=== PATIENT | female | born 1990 | race Caucasian/White ===

== ENCOUNTER 2017-11-05 16:17 | Inpatient (IN) ==
--- OUTSIDE RECORDS SUMMARY | 2017-11-05 16:24 | External Medical Summary | Continuity of Care Document ---
:1990 Author Organization [facility] Address [address] [place], [place] [address] Phone Support Name Relationship Address Phone Naman GALINDO parent [phone] [place] [address] Allergies, Adverse Reactions, Alerts Substance Reaction Severity Status No Known Drug Allergies Unknown Active Medications Medication Instructions Dosage Effective Dates Status Comments (start - stop) 28 mg take 1 tablet by Not Available - Active iron-800 mcg oral route every tablet day Problems Condition Effective Dates (start - stop) Clinical Status Encntr screen for infections w sexl - mode of transmiss Encounter for screening for oth - infec/parastc diseases Encntr for suprvsn of normal first - preg, second trimester Encounter For Other Specified - Screening 14 weeks gestation of - Low weight gain in , third - trimester Abnormal ultrasonic finding on - screening of mother Encntr for suprvsn of normal first - preg, third trimester 34 weeks gestation of - Abnormal ultrasonic finding on - screening of mother Encntr for suprvsn of normal first - preg, third trimester 32 weeks gestation of - Abnormal ultrasonic finding on - screening of mother 28 weeks gestation of - Encntr for suprvsn of normal first - preg, second trimester 20 weeks gestation of - Encntr for suprvsn of normal first - preg, second trimester 24 weeks gestation of - Encntr for suprvsn of normal first - preg, second trimester 18 weeks gestation of - Encntr for suprvsn of normal first - preg, second trimester 20 weeks gestation of - Encntr for suprvsn of normal first - preg, third trimester 30 weeks gestation of - Procedures Procedure Date Unknown Results Test Name Date and Time Measure Units Reference Range Abnormal Flag Comments Unknown Advance Directives Directive Yes / No Effective Date File Name Unknown Encounters Encounter Practice Location Reason(s) Diagnoses Date Provider Care Team Description For Visit Members Associates [facility] Low weight gain Jc-1 Sobbing Referring In Womens in , 8 [place]. Provider: Raffi FAIRCHILD, third 8 700 [address] Fisher [address] trimesterAbnormal Medical K, 700 1522, ultrasonic [facility], finding on [facility] [address], [address], [id number], screening of 120, [place], [place] motherEncntr for [place], [place], tel:+316 suprvsn of normal [place], [id number]. first preg, third [address], tel:+316 [id number] weeks [place]. [id number] gestation of tel:[phone] Associates Jay Cj-1 Sobbing In Womens - [place]. Raffi FAIRCHILD, 8 700 [address], [facility] [place], [place], [place], [id number], 120, [place], tel:+316 [place], [address], [place]. tel: [phone] Associates Jay Abnormal Cj-0 Sobbing Referring In Womens ultrasonic - [place]. Provider: Raffi FAIRCHILD, finding on 8 700 [address] Fisher PO Box Medical K, 700 1522, screening of [facility], motherEncntr for [facility] [address], suprvsn of normal [address], [id number], first preg, third 120, [place], [place] [email or web address] weeks MARITZA [place], tel:+3162 gestation of [place], [id number]. [address], tel:+[phone] [place]. [id number] tel: [phone] Associates Jay Encntr for August- Sobbing Referring In Womens suprvsn of normal -201 [place]. Provider: Raffi FAIRCHILD, first preg, third 8 700 Kiah Fisher [address] [email or web address] weeks Medical K, 700 1522, gestation of [facility], [facility] [address], [address], [id number], 120, [place], [place] MARITZA [place], tel:+3162 MAR[place]ZA, [id number]. [address], tel:+1316 [place]. [phone] tel: [phone] Kelley [place] Abnormal May-2 Sobbing Referring In Womens Ultrasound ultrasonic 1- [place]. Provider: Raffi FAIRCHILD, finding on 8 700 Kiah Fisher PO Box Medical K, 700 1522, screening of [facility], [email or web address] weeks [facility] Dr [address], gestation of [address], [id number], 120, [place], [place] MARITZA [place], tel:+3162 MARITZA, [id number]. 114, tel:+316 [place]. [phone] tel: [phone] Kelley Ingram for Apr-2 Sobbing Referring In Womens suprvsn of normal 3-201 [place]. Provider: Raffi FAIRCHILD, first preg, 8 700 Kiah Fisher PO Box second Medical K, 700 1522, [email or web address] weeks [facility], gestation of [facility] [address], [address], [id number], 120, [place], [place] MARITZA [place], tel:+ MARITZA, [phone]. [address], tel:+316 [place]. 6792753 tel: [phone] Kelley Ingram for Mar-2 Sobbing Referring In Womens suprvsn of normal 6-201 [place]. Provider: Raffi FAIRCHILD, first preg, 8 700 Kiah Fisher PO Box second Medical K, 700 1522, [email or web address] weeks [facility], gestation of [facility] [address], [address], , 120, [place], [place] MARITZA [place], tel:+3162 MARITZA, [id number]. 114, tel:+[phone] US. [id number] tel: [phone] Kelley [place] Encntr for Mar-2 Sobbing Referring In Womens Ultrasound suprvsn of normal 6-201 [place]. Provider: Health DEVORAH, first preg, 8 700 Kiah Fisher PO Box second Medical K, 700 1522, [email or web address] weeks [facility] [place], gestation of [facility] [address], [address], [id number], 120, [place], [place], tel:+ [place], [id number]. 114, tel:+ US. 3697323 tel: [phone] Kelley [place] Encntr for Jun- Sobbing Referring In Womens suprvsn of normal 2-201 [place]. Provider: Health DEVORAH, first preg, 8 700 Kiah Fisher PO Box second Medical K, 700 1522, weeks [place] Pat[facility]io Russo, gestation of [facility] [address], [address], [id number], 120, [place], MARITZA [place], tel:+ [place], [phone]. 114, tel:+ US. 6632554 tel: [phone] Kelley [place] Encntr screen for Feb- Sobbing Referring In Womens infections w sexl 2-201 [place]. Provider: Raffi FAIRCHILD, mode of 8 700 [address]iah Fisher PO Box transmissEncounte Medical K, 700 1522, [facility], for oth [facility] [address], infec/parastc [address], [id number], diseasesEncntr 120, [place], for suprvsn of [place], [place], tel:+ normal first MARITZA, [id number]. preg, second [address], tel:+316 trimesterEncounte [place]. [id number] r For Other tel: Specified [phone] [id number] weeks gestation of Associates Jay Nov-2 Fisher In Womens 4-200 Kiah. Raffi FAIRCHILD, 9 700 [address], [address], [address] MAR[place]ZA, 120, [id number], [place], MARITZA, tel:[phone] , [place]. tel: [phone] Family History Family Member Diagnosis Age At Onset Maternal Grandfather Diabetes mellitus No family history of Stroke Maternal Grandmother Thyroid Disorder Maternal Grandfather Cardiovascular Disease Paternal Grandmother Thyroid Disorder Maternal Grandmother Hypertension Maternal Grandfather Renal disease No family history of Breast Cancer No family history of Colon Cancer Mother Gynecological Problem Maternal Grandmother Cardiovascular Disease No family history of Ovarian Cancer Mother Thyroid Disorder Maternal Grandmother Osteoporosis Immunizations Vaccine Date Status Comments Tdap completed Source: New Immunization Record Payers Payer name Insurance type Covered republican ID Authorization(s) [facility] [id number] [facility] [id number] [facility] [id number] Social History Type Description Quantity Date Captured Unknown Vital Signs Date / Height Weight BMI Pulse Blood Temperature Respiratory Body Head BMI Time: Rate Pressure Rate Surface Circumference percentile Area Unknown Chief Complaint And Reason For Visit Unknown Chief Complaint And Reason For Visit Reason For Referral Reason For Referral Unknown Plan Of Care Date Type Action Status Appointment Alpa Christopher BOOKED Appointment Alpa Christopher BOOKED Future Order: Radiology Order Ultrasound OB Follow-up ([id number]) Ordered Future Order: Radiology Order Complete OB Ultrasound > 14 Weeks Ordered ([id number]) Date Type Problem Goal Intervention Status Start Date Unknown. History Of Present Illness Encounter Date Complaint History Of Present Illness This patient has no known history of present illness Functional Status Encounter Date Functional Assessment Cognitive Assessment Unknown Medications Administered Medication Instructions Dosage Effective Dates (start - stop) Status Comments Drug Treatment Unknown Instructions Date Instruction Additional Information exercise indications for ultrasound influenza vaccine environmental / work hazards travel use of any medications (including supplements, vitamins, herbs, OTC drugs) domestic violence seat belt use childbirth classes / hospital facilities hospital registration genetic testing new ob handbook HIV and other routine tests risk factors identified by history anticipated course of care nutrition and weight gain counseling, special diet toxoplasmosis precautions (cats / raw meat) sexual activity
--- OUTSIDE RECORDS SUMMARY | 2017-11-05 16:24 | External Medical Summary | Continuity of Care Document ---
:1990 Author Organization [facility] Address [address] [place], [place] [id number] Phone Support Name Relationship Address Phone Naman GLAINDO parent [phone] [place] [address] Allergies, Adverse Reactions, Alerts Substance Reaction Severity Status No Known Drug Allergies Unknown Active Medications Medication Instructions Dosage Effective Dates Status Comments (start - stop) 28 mg take 1 tablet by Not Available - Active iron-800 mcg oral route every tablet day Problems Condition Effective Dates (start - stop) Clinical Status Encntr for suprvsn of normal first - preg, third trimester Encounter For Screening For - Streptococcus B 36 weeks gestation of - Encntr screen for infections w sexl - mode of transmiss Encounter for screening for oth - infec/parastc diseases Encntr for suprvsn of normal first - preg, second trimester Encounter For Other Specified - Screening 14 weeks gestation of - Low weight gain in , third - trimester Abnormal ultrasonic finding on - screening of mother 36 weeks gestation of - Low weight gain in , third - trimester Abnormal ultrasonic finding on - screening of mother Encntr for suprvsn of normal first - preg, third trimester 34 weeks gestation of - Low weight gain in , third - trimester Encntr for suprvsn of normal first - preg, third trimester 38 weeks gestation of - Abnormal ultrasonic finding on - screening of mother Encntr for suprvsn of normal first - preg, third trimester 32 weeks gestation of - Abnormal ultrasonic finding on - screening of mother Encntr for suprvsn of normal first - preg, third trimester 37 weeks gestation of - Abnormal ultrasonic finding [...] weeks gestation of - Procedures Procedure Date OB Visit No Charge Cult, pathgnc orgnsm, screen Results Test Name Date and Time Measure Units Reference Range Abnormal Flag Comments Panel Description: Strep Gp B Culture Strep Gp B Negative Negative Centers for Disease Control Culture 11:38:00 and Prevention (CDC) and [place] Congressof Obstetricians and Gynecologists (ACOG) guidelines for prevention ofperinatal group B streptococcal (GBS) disease specify co-collection ofa vaginal and rectal swab specimen to maximize sensitivity of GBSdetection. Per the CDC and ACOG, swabbing both the lower vagina andrectum substantially increases the yield of detection compared withsampling the vagina alone. .Penicillin G, ampicillin, or cefazolin are indicated for intrapartumprophylaxis of GBS colonization. Reflex susceptibilitytesting should be performed prior to use of clindamycin only on GBSisolates from penicillin-allergic women who are considered a high riskfor anaphylaxis. Treatment with vancomycin without additional testingis warranted if resistance to clindamycin is noted. Advance Directives Directive Yes / No Effective Date File Name Unknown Encounters Encounter Practice Location Reason(s) Diagnoses Date Provider Care Team Description For Visit Members Associates Jay Low weight gain Lloyd-1 Sobbing Referring In Womens in , 6 [place]. Provider: Raffi FAIRCHILD, third 8 700 [address] Fisher PO Box trimesterEncntr Medical , 700 152, for [facility], normal [address], [address], preg, third [address], [id number], [email or web address] weeks 120, [place], [place] gestation of MARITZA [place], tel:+ MARIT[place], [phone]. [address], tel:+316 [place]. [phone] tel: [phone] Associates Jay Abnormal Lloyd-0 Sobbing Referring In Womens ultrasonic 9 [place]. Provider: Raffi FAIRCHILD, finding on 8 700 [address] Fisher PO Box Medical , 700 152, screening of [facility], motherEncntr for [facility], [address], suprvsn of normal [address], [id number], first preg, third 120, [place], [place] [id number] weeks MARITZA [place], tel:+ gestation of MARITZA, [id number]. [address], tel:+ US. [phone] tel: [phone] Associates Jay Encntr for Lloyd-0 Sobbing Referring In Womens suprvsn of normal [place]. Provider: Raffi FAIRCHILD, first preg, third 8 700 Kiah Fisher PO Box [facility], 700 152, [facility], Screening For [facility], [address], Streptococcus B36 [address], [id number], weeks gestation 120, [place], [place] of MARITZA [place], tel:+ MARITZA, [id number]. [address], tel:+316 [place]. 6924503 tel: [phone] Associates Jay Low weight gain Lloyd-0 Sobbing Referring In Womens Ultrasound in , [place]. Provider: Raffi FAIRCHILD, third 8 700 [address] Fisher PO Box trimesterAbnormal Medical , 700 1522, ultrasonic [facility], finding on [facility], [address], [address], [id number], screening of 120, [place], [place] [id number] weeks [place], [place], tel:+ gestation of MARITZA, [id number]. [address], tel:+1316 US. 3965858 tel: [phone] Associates Jay Low weight gain Cj-1 Sobbing Referring In Womens in , 8201 [place]. Provider: Raffi FAIRCHILD, third 8 700 [address] Fisher [address] Box trimesterAbnormal Medical , 700 1522, ultrasonic [facility], finding on Drive, [address], [address], [id number], screening of 120, [place], [place] motherEncntr for MARITZA [place], tel:+ suprvsn of normal MARITZA, [id number]. first preg, third [address], tel:+316 [id number] weeks [place]. [id number] gestation of tel:+[phone] Associates Jay Abnormal Cj-0 Sobbing Referring In Womens ultrasonic 4201 [place]. Provider: Raffi FAIRCHILD, finding on 8 700 [address] Medical , 700 1522, screening of [facility], motherEncntr for [facility], [address], suprvsn of normal [address], [id number], first preg, third 120, [place], [place] [id number] weeks MARITZA [place], tel:+ gestation of MARITZA, [id number]. [address], tel:+-316 US. 9965634 tel: [phone] Associates Jay Encntr for May-2 Sobbing Referring In Womens suprvsn of normal 201 [place]. Provider: Raffi FAIRCHILD, first preg, third 8 700 [address] Fisher [address] Box [id number] weeks Medical , 700 1522, gestation of [facility], Drive, [address], [address], [id number], 120, [place], [place] JayMARITZA, tel:+316 MARIT[place], [id number]. [address], tel:+1-316 US. 8825461 tel: [phone] Associates Jay Abnormal May-2 Sobbing Referring In Womens Ultrasound ultrasonic 201 [place]. Provider: Raffi FAIRCHILD, finding on 8 700 [address] Fisher PO Box Medical , 700 1522, screening of [facility], [id number] weeks [facility] Dr [address], gestation of [address], [id number], 120, [place], [place] MARITZA [place], tel:+ MARITZA, [id number]. 114, tel:+ US. 9843143 tel: [phone] Kelley [place] Encntr for Apr-2 Sobbing Referring In Womens suprvsn of normal 3-201 [place]. Provider: Raffi FAIRCHILD, first preg, 8 700 [address] Fisher PO Box second Medical K, 700 1522, [email or web address] weeks [facility], gestation of [facility] [address], [address], [id number], 120, [place], [place] MARITZA [place], tel:+ MARITZA, [id number]. 114, tel:+ US. 0885520 tel: [phone] Kelley [place] Encntr for Mar-2 Sobbing Referring In Womens suprvsn of normal 6-201 [place]. Provider: Raffi FAIRCHILD, first preg, 8 700 [address] Fisher PO Box second Medical K, 700 1522, [id number] weeks [facility], gestation of [facility] [address], [address], [id number], 120, [place], [place] MARITZA [place], tel:+ MARITZA, [id number]. 114, tel:+ US. 9153042 tel: [phone] Kelley [place] Encntr for Mar-2 Sobbing Referring In Womens Ultrasound suprvsn of normal 6-201 [place]. Provider: Raffi FAIRCHILD, first preg, 8 700 [address] Fisher PO Box second Medical K, 700 1522, [id number] weeks [facility], gestation of [facility] [address], [address], [id number], 120, [place], [place] MARITZA [place], tel:+ MARITZA, [id number]. 114, tel:+ US. 6070600 tel: [phone] Kelley [place] Encntr for Mar-1 Sobbing Referring In Womens suprvsn of normal 2-201 [place]. Provider: Raffi FAIRCHILD, first preg, 8 700 [address]iah Fisher PO Box second Medical K, 700 1522, [email or web address] weeks [facility], gestation of [facility] Dr [address], [address], [id number], 120, [place], [place], tel: MARITZA, [id number]. [address], tel: US. 6196261 tel: [phone] Associates Jay Encntr screen for May- Sobbing Referring In Womens infections w sexl 2-201 [place]. Provider: Health DEVORAH, mode of 8 700 [address] Fisher PO Box [facility] K, 700 1522, r for screening [facility], for oth [facility] Dr SAL[address], infec/parastc [address], [id number], diseasesEncntr 120, [place], for suprvsn of Jay [place], tel: normal first MARITZA, [id number]. preg, second [address], tel: trimesterEncounte US. [id number] r For Other tel: Specified [phone] [id number] weeks gestation of Associates Jay Feb- Fisher In Womens 4-200 Kiah. Health DEVORAH, 9 700 [address], [address], [place], 120, [id number], [place], MARITZA, tel: [phone] , [place]. tel: [phone] Family History Family Member Diagnosis Age At [...] Record Payers Payer name Insurance type Covered libertarian ID Authorization(s) [facility] [id number] [facility] [id number] [facility] [id number] Social History Type Description Quantity Date Captured Alcohol Use Details No Caffeine Use Details Unknown Tobacco Use Status Unknown Smoking Status Never smoker Vital Signs Date / Height Weight BMI Pulse Blood Temperature Respiratory Body Head BMI Time: Rate Pressure Rate Surface Circumference percentile Area 26.4 -2018 2 10:53 kg/m AM eter (2) 158.60 26.3 128/78 -2018 lbs 9 mm[Hg] 11:11 kg/m AM eter (2) Chief Complaint And Reason For Visit Unknown Chief Complaint And Reason For Visit Reason For Referral Reason For Referral Unknown Plan Of Care Date Type Action Status Appointment Alpa Christopehr BOOKED Appointment 7pm Alpa Andre @ [facility] BOOKED Future Order: Radiology Order Ultrasound OB Follow-up ([id number]) Ordered Future Order: Radiology Order Ultrasound OB Follow-up ([id number]) Ordered Future Order: Radiology Order Complete OB Ultrasound > 14 Weeks Ordered ([id number]) Date Type Problem Goal Intervention Status Start [...]
--- OUTSIDE RECORDS SUMMARY | 2017-11-05 16:24 | External Medical Summary | Continuity of Care Document ---
:1990 Author Organization [facility] [employer] [facility] Address [address] [place], [place] [address] Phone Support Name Relationship Address Phone Naman GALINDO parent [phone] [place] [address] Allergies, Adverse Reactions, Alerts Substance Reaction Severity [...] third trimester 30 weeks gestation of - Encntr screen for infections w sexl - mode of transmiss Encounter for screening for oth - infec/parastc diseases Encntr for suprvsn of normal first - preg, second trimester Encounter For Other Specified - Screening 14 weeks gestation of - Abnormal ultrasonic finding [...] second trimester 20 weeks gestation of - Procedures Procedure Date Immuniz admnin, 1 vac, sngl/combo 19 Yrs + TDAP VACCINE >7 IM OB Visit No Charge Automated hemogram (CBC) Glucose test Venpnctr fngr/heel/ear stick routne Results Test Name Date and Time Measure Units Reference Range Abnormal Flag Comments Panel Description: CBC With Differential/Platelet WBC 09:39:00 9.3 x10E3/uL 3.4-10.8 RBC 09:39:00 4.20 x10E6/uL 3.77-5.28 Hemoglobin 09:39:00 12.0 g/dL 11.1-15.9 Hematocrit 09:39:00 38.7 % 34.0-46.6 MCV 09:39:00 92 fL 79-97 MCH 09:39:00 28.6 pg 26.6-33.0 MCHC 09:39:00 31.0 g/dL 31.5-35.7 L RDW 09:39:00 13.3 % 12.3-15.4 Platelets 09:39:00 390 x10E3/uL 150-379 H Neutrophils 09:39:00 79 % Not Estab. Lymphs 09:39:00 14 % Not Estab. Monocytes 09:39:00 6 % Not Estab. Eos 09:39:00 0 % Not Estab. Basos 09:39:00 0 % Not Estab. Immature Cells 09:39:00 Neutrophils (Absolute) 09:39:00 7.4 x10E3/uL 1.4-7.0 H Lymphs (Absolute) 09:39:00 1.3 x10E3/uL 0.7-3.1 Monocytes(Absolute) 09:39:00 0.6 x10E3/uL 0.1-0.9 Eos (Absolute) 09:39:00 0.0 x10E3/uL 0.0-0.4 Baso (Absolute) 09:39:00 0.0 x10E3/uL 0.0-0.2 Immature Granulocytes 09:39:00 1 % Not Estab. Immature Grans (Abs) 09:39:00 0.1 x10E3/uL 0.0-0.1 NRBC 09:39:00 Hematology Comments: 09:39:00 Panel Description: Glucose [Mass/volume] in Serum or Plasma --1 hour post 50 g glucose PO Gestational Diabetes Screen 09:39:00 87 mg/dL 65-135 Advance Directives Directive Yes / No Effective Date File Name Unknown Encounters Encounter Practice Location Reason(s) Diagnoses Date Provider Care Team Description For Visit Members Kelley [place] Abnormal Cj-0 Sobbing Referring In Womens ultrasonic 4-201 [place]. Provider: Health DEVORAH, finding on 8 700 K[address] Fisher PO Box Medical , 700 1522, screening of [facility], motherEncntr for [facility] [address] SALAS, suprvsn of normal [address], [id number], first preg, third 120, [place], [place] [id number] weeks MARITZA [place], tel:+ gestation of MARITZA, [phone] [address], tel:+ US. [phone] tel: [phone] Kelley [place] Encntcapo for August-2 Sobbing Referring In Womens suprvsn of normal -201 [place]. Provider: Raffi FAIRCHILD, first preg, third 8 700 [address] Fisher [address] [email or web address] weeks Medical , 700 1522, gestation of [facility], [facility] Dr SALAS, [address], [id number], 120, [place], [place] MARITZA [place], tel:+316 [place], [phone] [address], tel:+316 [place]. [phone] tel: [phone] Kelley [place] Abnormal August-2 Sobbing Referring In Womens Ultrasound ultrasonic 1-201 [place]. Provider: Raffi FAIRCHILD, finding on 8 700 Kiah Fisher PO Box Medical K, 700 1522, screening of [facility], [email or web address] weeks [facility] Dr SALAS, gestation of [address], [id number], 120, [place], [place] MARITZA [place], tel:+3162 [place], [id number]. [address], tel:+316 US. 3070438 tel: [phone] Kelley [place] Encntr for Apr-2 Sobbing Referring In Womens suprvsn of normal 3-201 [place]. Provider: Health DEVORAH, first preg, 8 700 Kiah Fisher PO Box second Medical K, 700 1522, [email or web address] weeks [facility], [employer] of [facility] Dr SALAS, [address], [id number], 120, [place], [place] MARITZA [place], tel:+ MARITZA, [id number]. 114, tel:+ US. [phone] tel: [phone] Kelley [place] Encntr for Mar-2 Sobbing Referring In Womens suprvsn of normal 6-201 [place]. Provider: Raffi FAIRCHILD, first preg, 8 700 Kiah Fisher PO Box second Medical K, 700 1522, [email or web address] weeks [facility], gestation of [facility] Dr SALAS, [address], [id number], 120, [place], [place] MARITZA [place], tel:+ MARITZA, [phone]. [address], tel:+ US. [phone] tel: [phone] Kelley [place] Encntr for Mar-2 Sobbing Referring In Womens Ultrasound suprvsn of normal 6-201 [place]. Provider: Health DEVORAH, first preg, 8 700 Kiah Fisher PO Box second Medical K, 700 1522, [email or web address] weeks [facility], [facility] Dr SALAS, [address], [id number], 120, [place], [place] MARITZA [place], tel:+3162 [place], [id number]. 114, tel:+316 US. 2491876 tel: [phone] Kelley [place] Encntr for Mar-1 Sobbing Referring In Womens suprvsn of normal 2-201 [place]. Provider: Raffi FAIRCHILD, first preg, 8 700 [address] Fisher PO Box second Medical K, 700 1522, [email or web address] weeks [place] Patricio Russo, gestation of [facility] Dr SALAS, [address], [id number], 120, [place], [place], tel:+ [place], [phone]. [address], tel:+ US. 5265791 tel: [phone] Associates [facility] Encnt screen for May- Sobbing Referring In Womens infections w sexl 2-201 [place]. Provider: Raffi FAIRCHILD, mode of 8 700 Kaih Fisher PO Box transmissEncounte Medical K, 700 1522, r for screening [place] Patricio Russo, for oth [facility] Dr SALAS, infec/parastc [address], [id number], diseasesEncntr 120, [place], for suprvsn of [place], [place], tel:+ normal first MARITZA, [id number]. preg, second [address], tel:+ trimesterEncounte US. [phone] r For Other tel: Specified [phone] [id number] weeks gestation of Associates Jay Nov- Fisher In Womens 4-200 Kiah. Raffi FAIRCHILD, 9 700 [address], [place] [address] Karan, [place], 120, [id number], [place], MARITZA, tel:[phone] , . tel: [phone] Family History Family Member Diagnosis Age At [...] name Insurance type Covered libertarian ID Authorization(s) [facility] [id number] [facility] [id number] [facility] [id number] Social History Type Description Quantity Date Captured Alcohol Use Details No Caffeine Use Details Unknown Tobacco Use Status Unknown Smoking Status Never smoker Vital Signs Date / Height Weight BMI Pulse Blood Temperature Respiratory Body Head BMI Time: Rate Pressure Rate Surface Circumference percentile Area 159.60 26.5 113/66 -2018 lbs 6 mm[Hg] 9:03 kg/m AM eter (2) 159.60 26.5 -2018 lbs 6 9:02 kg/m AM eter (2) Chief Complaint And Reason For Visit Unknown Chief Complaint And Reason For Visit Reason For Referral Reason For Referral Unknown Plan Of Care Date Type Action Status Appointment Alpa Christopher BOOKED Future Order: Radiology Order Ultrasound OB Follow-up ([id number]) Ordered Future Order: Radiology Order Complete OB Ultrasound > 14 Weeks Ordered ([id number]) Date Type Problem Goal Intervention Status Start [...]
--- OUTSIDE RECORDS SUMMARY | 2017-11-05 16:24 | External Medical Summary | Continuity of Care Document ---
:1990 Author Organization [facility] [employer] [facility] Address [address] [place], [place] [address] Phone Support Name Relationship Address Phone Naman GALINDO parent [phone] [place] [address] Allergies, Adverse Reactions, Alerts Substance Reaction Severity Status No Known Drug Allergies Unknown Active Medications Medication Instructions Dosage Effective Dates Status Comments (start - stop) 28 mg take 1 tablet by Not Available - Active iron-800 mcg oral route every tablet day Problems Condition Effective Dates (start - stop) Clinical Status Low weight gain in , third - trimester Abnormal ultrasonic finding on - screening of mother Encntr for suprvsn of normal first - preg, third trimester 34 weeks gestation of - Encntr screen for [...] of mother 36 weeks gestation of - Abnormal ultrasonic finding [...] trimester 30 weeks gestation of - Encntr for suprvsn of normal first - preg, third trimester Encounter For Screening For - Streptococcus B 36 weeks gestation of - Procedures Procedure Date OB Visit No Charge Results Test Name Date and Time Measure Units Reference Range Abnormal Flag Comments Unknown Advance Directives Directive Yes / No Effective Date File Name Unknown Encounters Encounter Practice Location Reason(s) Diagnoses Date Provider Care Team Description For Visit Members Kelley [place] Encntr for Sobbing Referring In Womens suprvsn of normal [place]. Provider: Health DEVORAH, first preg, third 8 700 K[address] Fisher PO Box trimesterEncounte Medical K, 700 1522, [facility] For [facility], [address] SALAS, Streptococcus B36 [address], [id number], weeks gestation 120, [place], [place] of MARITZA [place], tel:+316 [place], [phone]. [address], tel:+ US. [phone] tel: [phone] Kelley [place] Low weight gain Oct- Sobbing Referring In Womens Ultrasound in , [place]. Provider: Health [place], third 8 700 Kiah Fisher PO Box trimesterAbnormal Medical K, 700 1522, ultrasonic [facility] Karan, finding on [facility], [address] SALAS, [address], [id number], screening of 120, [place], [place] [email or web address] weeks MARITZA [place], tel:+13162 gestation of MARITZA, [id number]. [address], tel:+316 US. 5598655 tel: [phone] Kelley [place] Low weight gain Cj-1 Sobbing Referring In Womens in , 8 [place]. Provider: Health DEVORAH, third 8 700 Kiah Fisher PO Box trimesterAbnormal Medical , 700 1522, ultrasonic [facility], finding on [facility] Dr SALAS, [address], [id number], screening of 120, [place], [place] motherEncntr for MARITZA [place], tel:+ suprvsn of normal MARITZA, [id number]. first preg, third [address], tel:+316 [id number] weeks US. [id number] gestation of tel:[phone] Associates Jay Abnormal Cj-0 Sobbing Referring In Womens ultrasonic [place]. Provider: Raffi FAIRCHILD, finding on 8 700 [address] PO [address] Medical , 700 152, screening of [facility], motherEncntr for [facility] Dr SALAS, suprvsn of normal [address], [id number], first preg, third 120, [place], [place] [id number] weeks MARITZA [place], tel:+ gestation of MARITZA, [phone]. [address], tel:+-316 US. 3550148 tel: [phone] Associates Jay Encntr for May-2 Sobbing Referring In Womens suprvsn of normal [place]. Provider: Raffi FAIRCHILD, first preg, third 8 700 K[address] Fisher PO Box [id number] weeks Medical , 700 1522, gestation of [facility], [facility], [address] SALAS, [address], [id number], 120, [place], [place] MARITZA [place], tel:+ MARITZA, [id number]. 114, tel:+316 US. 6381760 tel: [phone] Associates Jay Abnormal May-2 Sobbing Referring In Womens Ultrasound ultrasonic [place]. Provider: Raffi FAIRCHILD, finding on 8 700 [address] Fisher PO Box Medical , 700 1522, screening of [facility], [email or web address] weeks [facility] Dr SALAS, gestation of [address], [id number], 120, [place], [place] MARITZA [place], tel:+316 MARIT[place], [id number]. 114, tel:+1-316 US. 8968766 tel: [phone] Kelley [place] Encntr for Apr-2 Sobbing Referring In Womens suprvsn of normal 3-201 [place]. Provider: Raffi FAIRCHILD, first preg, 8 700 Kiah Barcenasb PO Box second Medical K, 700 1522, weeks [facility] Dr SALAS, [address], [id number], 120, [place], [place] MARITZA [place], tel: MARITZA, [id number]. 114, tel: US. 1941186 tel: [phone] Kelley [place] Encntr for Mar-2 Sobbing Referring In Womens suprvsn of normal 6-201 [place]. Provider: Raffi FAIRCHILD, first preg, 8 700 Kiah Barcenasb PO Box second Medical K, 700 1522, [email or web address] weeks [facility]3] Dr SALAS, [address], [id number], 120, [place], [place] MARITZA [place], tel: MARITZA, [id number]. 114, tel: US. 2232239 tel: [phone] Kelley [place] Encntr for Mar-2 Sobbing Referring In Womens Ultrasound suprvsn of normal 6-201 [place]. Provider: Raffi FAIRCHILD, first preg, 8 700 Kiah Barcenasb PO Box second Medical K, 700 1522, [email or web address] weeks [facility] Dr SALAS, [address], [id number], 120, [place], [place] MARITZA [place], tel: MARITZA, [id number]. 114, tel: US. 0873254 tel: [phone] Kelley [place] Encntr for Mar-1 Sobbing Referring In Womens suprvsn of normal 2-201 [place]. Provider: Raffi FAIRCHILD, first preg, 8 700 [address] Fisher PO Box second Medical K, 700 1522, [email or web address] weeks [facility] Dr SALAS, [address], [id number], 120, [place], [place] MARITZA [place], tel:+ MARITZA, [phone]. 114, tel: US. 5761547 tel: [phone] Associates Jay Encntr screen for b- Sobbing Referring In Womens infections w sexl 2-201 [place]. Provider: Raffi FAIRCHILD, mode of 8 700 K[address] Fisher PO Box transmissEncounte Medical K, 700 1522, r for screening Daniel Patricio Russo, for oth Drive, Daniel Dr SALAS, infec/parastc [address], [id number], diseasesEncntr 120, [facility] for suprvsn [place], tel: normal first [place], [id number]. preg, second [address], tel: trimesterEncounte US. [id number] r For Other tel: Specified [phone] [id number] weeks gestation of Associates Jay Feb- Fisher In Womens 4-200 Kiah. Raffi FAIRCHILD, 9 700 [address], [address] Karan, , [place], 120, [id number], [facility] [place], tel: [phone] [phone] , . tel: [phone] Family History Family Member Diagnosis Age At [...] Record Payers Payer name Insurance type Covered constitution party ID Authorization(s) [facility] [id number] [facility] [id number] [facility] [id number] Social History Type Description Quantity Date Captured Alcohol Use Details No Caffeine Use Details Unknown Tobacco Use Status Unknown Smoking Status Never smoker Vital Signs Date / Height Weight BMI Pulse Blood Temperature Respiratory Body Head BMI Time: Rate Pressure Rate Surface Circumference percentile Area 7 8:52 kg/m AM eter (2) Cj-18 158.80 26.4 129/77 -2018 lbs 2 mm[Hg] 8:59 kg/m AM eter (2) Chief Complaint And Reason For Visit Unknown Chief Complaint And Reason For Visit Reason For Referral Reason For Referral Unknown Plan Of Care Date Type Action Status Appointment 7pm NOMI Christopher Alpa @ [facility] BOOKED Future Order: Radiology Order Ultrasound OB Follow-up ([id number]) Ordered Future Order: Radiology Order Ultrasound OB Follow-up ([id number]) Ordered Future Order: Radiology Order Complete OB Ultrasound > 14 Weeks Ordered ([id number]) Date Type Problem Goal Intervention Status Start [...]
--- OUTSIDE RECORDS SUMMARY | 2017-11-05 16:24 | External Medical Summary | Continuity of Care Document ---
:1990 Author Organization [facility] Address [address] [place], [place] [address] Phone Support Name Relationship Address Phone Naman GALINDO parent [phone] [place] [address] Allergies, Adverse Reactions, Alerts Substance Reaction Severity [...] trimester 24 weeks gestation of - Encntr screen for infections w sexl - mode of transmiss Encounter for screening for oth - infec/parastc diseases Encntr for suprvsn of normal first - preg, second trimester Encounter For Other Specified - Screening 14 weeks gestation of - Encntr for suprvsn [...] Team Description For Visit Members Kelley [place] Encolmanr for Sobbing Referring In Womens suprvsn of normal 3-201 [place]. Provider: Health DEVORAH, first preg, 8 700 Kiah Fisher PO [address] second Medical K, 700 1522, [email or web address] weeks [facility] Dr SALAS, [address], [id number], 120, [place], [place] MARITZA [place], tel:+ MARITZA, [id number]. 114, tel:+ US. 8026904 tel: [phone] Kelley [place] Encntr for Mar-2 Sobbing Referring In Womens suprvsn of normal 6-201 [place]. Provider: Health DEVORAH, first preg, 8 700 K[address] Fisher PO Box second Medical K, 700 1522, [email or web address] weeks [facility] Dr SALAS, [address], [id number], 120, [place], [place] MARITZA [place], tel:+ MARITZA, [id number]. 114, tel:+ US. 4520158 tel: [phone] Kelley [place] Encntr for Mar-2 Sobbing Referring In Womens Ultrasound suprvsn of normal 6-201 [place]. Provider: Health DEVORAH, first preg, 8 700 Kiah Fisher PO Box second Medical K, 700 1522, [id number] weeks [facility] Dr SALAS, [address], [id number], 120, [place], [place] MARITZA [place], tel:+ MARITZA, [id number]. 114, tel:+ US. 1276539 tel: [phone] Kelley [place] Encntr for Mar-1 Sobbing Referring In Womens suprvsn of normal 2-201 [place]. Provider: Health DEVORAH, first preg, 8 700 K[address] Fisher PO Box second Medical K, 700 1522, [email or web address] weeks [facility] Dr SALAS, [address], , 120, [place], [place] MARITZA [place], tel:+2 MARITZA, [id number]. 114, tel:+316 US. 5782546 tel: [phone] Kelley [place] Encntr screen for Feb-1 Sobbing Referring In Womens infections w sexl 2-201 [place]. Provider: Health DEVORAH, mode of 8 700 K[address] Fisher PO Box transmissEncounte Medical K, 700 1522, r for screening [facility], for [facility], [place] [address] SALAS, infec/parastc [address], [id number], diseasesEncntr 120, [place], for suprvsn of [place], [place], tel: normal first [place], [id number]. preg, second [address], tel: trimesterEncounte US. [id number] r For Other tel: Specified [phone] [id number] weeks gestation of Associates Jay Fisher In Womens 4-200 Kiah. Raffi FAIRCHILD, 9 700 [address], [place] Karan, , [place], 120, [id number], [facility] [place], tel: [phone] , [place]. tel: [phone] Family History Family Member Diagnosis Age At [...] Grandmother Osteoporosis Immunizations Vaccine Date Status Comments Unknown Payers Payer name Insurance type Covered republican ID Authorization(s) [facility] [id number] [facility] [id number] Social History Type Description Quantity Date Captured Alcohol Use Details No Caffeine Use Details Unknown Tobacco Use Status Unknown Smoking Status Never smoker Vital Signs Date / Height Weight BMI Pulse Blood Temperature Respiratory Body Head BMI Time: Rate Pressure Rate Surface Circumference percentile Area 157.70 26.2 138/78 2018 lbs 4 mm[Hg] 8:37 kg/m AM eter (2) Chief Complaint And Reason For Visit Unknown Chief Complaint And Reason For Visit Reason For Referral Reason For Referral Unknown Plan Of Care Date Type Action Status Appointment Alpa ChristopherDrink DMS BOOKED Appointment DanisAlpa golden BOOKED Future Order: Radiology Order Complete OB Ultrasound > 14 Weeks Ordered ([id number]) Date Type Problem Goal Intervention Status Start [...]
--- OUTSIDE RECORDS SUMMARY | 2017-11-05 16:24 | External Medical Summary | Continuity of Care Document ---
:1990 Author Organization [facility] Address [address] [place], [place] [address] Phone Support Name Relationship Address Phone Naman GALINDO parent [phone] [phone] [place] [address] Allergies, Adverse Reactions, Alerts Substance Reaction Severity [...] trimester 20 weeks gestation of - Encntr screen for [...] second trimester 18 weeks gestation of - Procedures Procedure Date Ultrasound exam of preg uterus, complete Results Test Name Date and Time Measure Units Reference Range Abnormal Flag Comments Unknown Advance Directives Directive Yes / No Effective Date File Name Unknown Encounters Encounter Practice Location Reason(s) Diagnoses Date Provider Care Team Description For Visit Members Kelley [place] Encntr for Jun- Sobbing Referring In [facility] suprvsn of normal 6-201 [place]. Provider: Raffi FAIRCHILD, first preg, 8 700 K[address] Fisher [address] second Medical K, 700 1526, [email or web address] weeks [facility] Dr SALAS, [address], [id number], 120, [place], [place] MARITZA [place], tel:+ MARITZA, [phone]. 114, tel:+316 US. 5609442 tel: [phone] Kelley [place] Encntr for Mar-2 Sobbing Referring In Womens Ultrasound suprvsn of normal 6-201 [place]. Provider: Raffi FAIRCHILD, first preg, 8 700 Kiah Fisher PO Box second Medical , 700 1522, [email or web address] weeks [facility] Dr SALAS, [address], [id number], 120, [place], [place] MARITZA [place], tel:+ MARITZA, [phone]. 114, tel:+316 US. 1398594 tel:[phone] Kelley [place] Encntr for Mar-1 Sobbing Referring In Womens suprvsn of normal 2-201 [place]. Provider: Raffi FAIRCHILD, first preg, 8 700 Kiah Fisher PO Box [facility] Medical , 700 1522, [email or web address] weeks [facility] Dr SALAS, [address], [id number], 120, [place], [place] MARITZA [place], tel:+ MARITZA, [phone]. 114, tel:+316 US. 3659940 tel:[phone] Kelley [place] Encntr screen for Feb-1 Sobbing Referring In Womens infections w sexl 2-201 [place]. Provider: Raffi FAIRCHILD, mode of 8 700 Kiah Fisher [facility] , 700 1522, r for screening [facility], infec/parastc [address], [id number], diseasesEncntr 120, [place], for suprvsn of MARITZA [place], tel:+316 normal first MARITZA, [id number]. preg, second [address], tel:+316 trimesterEncounte US. [id number] r For Other tel: Specified [id number] [id number] weeks gestation of Kelley [place] Nov-2 Fisher In Womens 4-200 Kiah. [facility], 9 700 PO [facility] [address], [place] Karan, [facility], 120, [id number], [place], [place], tel:[phone] [address] , [place]. tel: [phone] Family History Family Member Diagnosis Age At [...] name Insurance type Covered republican ID Authorization(s) ERIN SALAS BL [id number] [facility] [id number] Social History Type Description Quantity Date Captured [...] Alpa Christopher BOOKED Future Order: Radiology Order Complete OB Ultrasound > 14 Weeks Ordered ([id number]) Date Type Problem Goal Intervention Status Start [...]
--- OUTSIDE RECORDS SUMMARY | 2017-11-05 16:24 | External Medical Summary | Continuity of Care Document ---
:1990 Author Organization [facility] Address [address] [place], [place] [id number] Phone Support Name Relationship Address Phone Naman GALINDO parent [phone] [place] [address] Allergies, Adverse Reactions, Alerts Substance Reaction Severity [...] Thompson Encntr for Jun- Sobbing Referring In [facility] suprvsn of normal 6-201 [place]. Provider: Raffi FAIRCHILD, first preg, 8 700 K[address] Fisher PO [address] second Medical K, 700 1522, [id number] weeks [facility] [address] SALAS, [address], [id number], 120, [place], [place] MARITZA Thompson, tel:+ MARITZA, [id number]. 114, tel:+ US. 9462466 tel: [phone] Kelley [place] Encntr for Mar-2 Sobbing Referring In Womens Ultrasound suprvsn of normal 6-201 [place]. Provider: Raffi FAIRCHILD, first preg, 8 700 Kiah Fisher PO Box [facility] , 700 1522, [email or web address] weeks [facility] Dr SALAS, [address], [id number], 120, [place], [place] MARITZA Thompson, tel:+ MARITZA, [id number]. 114, tel:+ US. [phone] tel:[phone] Kelley [place] Encntr for Mar-1 Sobbing Referring In Womens suprvsn of normal 2-201 [place]. Provider: Raffi FAIRCHILD, first preg, 8 700 Kiah Fisher PO Box [facility] , 700 1522, [id number] weeks [facility] [address] SALAS, [address], [id number], 120, [place], [place] MARITZA Thompson, tel:+ MARITZA, [id number]. 114, tel:+ US. [phone] tel:[phone] Kelley [place] Encntr screen for Feb-1 Sobbing Referring In Womens infections w sexl 2-201 [place]. Provider: Raffi FAIRCHILD, mode of 8 700 [address]iah Fisher PO Box [facility] , 700 1522, r for screening [facility], for oth [facility] [address] SALAS, infec/parastc [address], [id number], diseasesEncntr 120, [place], [place] for suprvsn of MARITZA Thompson, tel:+316 normal first MARITZA, [id number]. preg, second [address], tel:+316 trimesterEncounte [place]. [phone] r For Other tel: Specified [id number] weeks gestation of Kelley [place] Nov-2 Fisher In Womens 4-200 [address] [place], 9 700 PO [facility] [address] [address] Karan, [facility], 120, [id number], [facility] [place], tel:[phone] 539504 , . tel:[phone] Family History Family Member Diagnosis Age At [...] Unknown Payers Payer name Insurance type Covered libertarian ID Authorization(s) GENE SALAS BL [id number] [facility] [id number] Social History Type Description Quantity Date Captured Alcohol Use Details No Caffeine Use Details Unknown Tobacco Use Status Unknown Smoking Status Never smoker Vital Signs Date / Height Weight BMI Pulse Blood Temperature Respiratory Body Head BMI Time: Rate Pressure Rate Surface Circumference percentile Area 153.50 25.5 125/2018 lbs 4 mm[Hg] 8:47 kg/m AM eter (2) Chief Complaint And Reason For Visit Unknown Chief Complaint And Reason For Visit Reason For Referral Reason For Referral Unknown Plan Of Care Date Type Action Status Appointment Alpa Christopher BOOKED Future Order: Radiology Order Complete OB Ultrasound > 14 Weeks Ordered ([id number]) Date Type Problem Goal Intervention Status Start [...]
--- OUTSIDE RECORDS SUMMARY | 2017-11-05 16:24 | External Medical Summary | Continuity of Care Document ---
:1990 Author Organization [facility] Address [address] [place], [place] [address] Phone Support Name Relationship Address Phone Naman GALINDO parent [phone] [place] [address] Allergies, Adverse Reactions, Alerts Substance Reaction Severity [...] of mother 36 weeks gestation of - Encntr screen [...] weeks gestation of - Procedures Procedure Date Ultrasnd preg uterus, flwup/repeat Results Test Name Date and Time Measure Units Reference Range Abnormal Flag Comments Unknown Advance Directives Directive Yes / No Effective Date File Name Unknown Encounters Encounter Practice Location Reason(s) Diagnoses Date Provider Care Team Description For Visit Members Associates Jay Low weight gain Sobbing Referring In Womens in , 6 [place]. Provider: Raffi FAIRCHILD, third 8 700 Kiah Fisher PO Box trimesterEncntr Medical , 700 1522, for suprvsn of [facility], normal [address], [place] [address], preg, third [address], [id number], [email or web address] weeks 120, [place], [place] gestation of MARITZA [place], tel: [place], [id number]. 112349 [address], tel: [place]. 7193265 tel: [phone] Associates Jay Abnormal Oct- Sobbing Referring In Womens ultrasonic 201 [place]. Provider: Raffi FAIRCHILD, finding on 8 700 Kiah Barcenasb PO Box Medical K, 700 1522, screening of [facility], motherEncntr for Drive, [address]AS, suprvsn of normal [address], [id number], first preg, third 120, [place], [place] weeks MARITZA Thompson, tel:+3162 gestation of MARITZA, [id number]. [address], tel:[phone] US. 7265265 tel: [phone] Associates Jay Encntr for Lloyd-0 Sobbing Referring In Womens suprvsn of normal 201 [place]. Provider: Health PA, first preg, third 8 700 Kiah Fisher PO Box [facility] , 700 1522, r For Center [facility], Screening For Drive, [place] [address] SALAS, Streptococcus B36 [address], [id number], weeks gestation 120, [place], [place] of MARITZA Thompson, tel:+3162 MARITZA, [id number]. 114, tel:+-316 US. 6981856 tel: [phone] Associates Jay Low weight gain Lloyd-0 Sobbing Referring In Womens Ultrasound in , 2 [place]. Provider: Health PA, third 8 700 Kiah Fisher PO Box [facility] , 700 15[address], ultrasonic [facility], finding on Drive, Center Dr [address], [address], [id number], screening of 120, [place], [place] [email or web address] weeks MARITZA Thompson, tel:+3162 gestation of MARITZA, [id number]. [address], tel:+-316 US. 2590086 tel: [phone] Associates Jay Low weight gain Cj-1 Sobbing Referring In Womens in , 8 [place]. Provider: Health PA, third 8 700 Kiah Fisher PO Box [facility] , 700 1522, ultrasonic Center [facility], finding on Drive, Center Dr [address], [address], [id number], screening of 120, [place], [place] motherEncntr for MARITZA Thompson, tel:+[phone] suprvsn of normal MARITZA, [id number]. first preg, third [address], tel:[phone] [id number] weeks US. [id number] gestation of tel:[phone] Associates Jay Abnormal Cj-0 Sobbing Referring In Womens ultrasonic 4-201 [place]. Provider: Health DEVORAH, finding on 8 700 Kiah Fisher PO Box Medical , 700 1522, screening of [facility], motherEncntr for [facility] Dr SALAS, suprvsn of normal [address], [id number], first preg, third 120, [place], [place] weeks MARITZA Thompson, tel:+2 gestation of MARITZA, [id number]. [address], tel:+316 US. 3391600 tel: [phone] Kelley [place] Encntr for May-2 Sobbing Referring In Womens suprvsn of normal 1-201 [place]. Provider: Health PA, first preg, third 8 700 Kiah Fisher PO Box [id number] weeks Medical , 700 1522, gestation of [facility], [facility] Dr SALAS, [address], [id number], 120, [place], [place] MARITZA Thompson, tel:+ MARITZA, [phone]. 114, tel:+316 US. 3607030 tel: [phone] Kelley [place] Abnormal May-2 Sobbing Referring In Womens Ultrasound ultrasonic 1-201 [place]. Provider: Raffi FAIRCHILD, finding on 8 700 [address] Fisher PO Box Medical , 700 1522, screening of [facility], [email or web address] weeks [facility] Dr SALAS, gestation of [address], [id number], 120, [place], [place] MARITZA Thompson, tel:+ MARITZA, [phone]. [address], tel:+ US. 0885353 tel: [phone] Kelley [place] Encntr for Apr-2 Sobbing Referring In Womens suprvsn of normal 3-201 [place]. Provider: Health PA, first preg, 8 700 Kiah Fisher PO Box second Medical K, 700 1522, weeks [facility], gestation of [facility] Dr SALAS, [address], [id number], 120, [place], [place] MARITZA Thompson, tel:+316 MARITZA, [id number]. 114, tel:+-316 US. 5045782 tel: [phone] Kelley [place] Encntr for Mar-2 Sobbing Referring In Womens suprvsn of normal 6-201 [place]. Provider: Raffi FAIRCHILD, first preg, 8 700 Kiah Fisher PO Box second Medical K, 700 1522, [email or web address] weeks [facility] Dr SALAS, [address], [id number], 120, [place], [place] MARITZA Thompson, tel:+ MARITZA, [id number]. 114, tel:+ US. 8607692 tel: [phone] Kelley [place] Encntr for Mar-2 Sobbing Referring In Womens Ultrasound suprvsn of normal 6-201 [place]. Provider: Raffi FAIRCHILD, first preg, 8 700 Kiah Fisher PO Box second Medical , 700 1522, [email or web address] weeks [facility] Dr SALAS, [address], [id number], 120, [place], [place] MARITZA Thompson, tel:+ MARITZA, [phone]. 114, tel:+ US. 8034374 tel: [phone] Kelley [place] Encntr for Mar-1 Sobbing Referring In Womens suprvsn of normal 2-201 [place]. Provider: Raffi FAIRCHILD, first preg, 8 700 Kiah Fisher PO Box second Medical K, 700 1522, [email or web address] weeks [facility] Dr SALAS, [address], [id number], 120, [place], [place] MARITZA Thompson, tel:+ MARITZA, [phone]. 114, tel:+ US. 0046343 tel: [phone] Kelley [place] Encntr screen for Feb-1 Sobbing Referring In Womens infections w sexl 2-201 [place]. Provider: Raffi FAIRCHILD, mode of 8 700 K[address] Fisher PO Box [facility] K, 700 1522, r for screening [facility], [facility], infec/parastc [address], [id number], diseasesEncntr 120, [place], for suprvsn of MARITZA Thompson, tel:+ normal first MARITZA, [id number]. preg, second [address], tel: trimesterEncounte US. [id number] r For Other tel: Specified [id number] weeks gestation of Associates Jay Fisher In Womens 4-200 [facility], 9 700 PO [place] [facility] [address], [address] Kar[address], [place], 120, [id number], [facility] [place], tel: [phone] , [place]. tel: [phone] Family History Family Member Diagnosis Age At [...] Record Payers Payer name Insurance type Covered green party ID Authorization(s) [facility] [id number] [facility] [id number] [facility] [id number] Social History Type Description Quantity Date Captured Unknown Vital Signs Date / Height Weight BMI Pulse Blood Temperature Respiratory Body Head BMI Time: Rate Pressure Rate Surface Circumference percentile Area Unknown Chief Complaint And Reason For Visit Unknown Chief Complaint And Reason For Visit Reason For Referral Reason For Referral Unknown Plan Of Care Date Type Action Status Appointment Alpa Christopher BOOKED Appointment 7pm FB - Alpa Christopher @ [facility] BOOKED Future Order: Radiology Order Ultrasound OB Follow-up ([id number]) Ordered Future Order: Radiology Order Ultrasound OB Follow-up ([id number]) Ordered Future Order: Radiology Order Complete OB Ultrasound > 14 Weeks Ordered ([id number]) Date Type Problem Goal Intervention Status Start [...]
--- OUTSIDE RECORDS SUMMARY | 2017-11-05 16:24 | External Medical Summary | Continuity of Care Document ---
:1990 Author Organization [facility] Address [address] [place], [place] [address] Phone Support Name Relationship Address Phone Naman GALINDO parent [phone] [place] [address] Allergies, Adverse Reactions, Alerts Substance Reaction Severity Status No Known Drug Allergies Unknown Active Medications Medication Instructions Dosage Effective Dates Status Comments (start - stop) 28 mg take 1 tablet by Not Available - Active iron-800 mcg oral route every tablet day Problems Condition Effective Dates (start - stop) Clinical Status Abnormal ultrasonic finding on - screening of mother Encntr for suprvsn of normal first - preg, third trimester 37 weeks gestation of - Encntr screen for [...] of normal first - preg, third trimester 39 weeks gestation of - Low weight gain [...] gain Sobbing Referring In Womens in , 3-201 [place]. Provider: [facility], third 8 700 Kiah Fisher PO Box [facility], 700 1522, ultrasonic Center [facility], finding on Drive, [place] [address], [address], [id number], screening of 120, [place], [place] motherEncntr for MARITZA Thompson, tel:+[phone] suprvsn of normal MARITZA, [id number]. 516595 first preg, third [address], tel:+1316 [id number] weeks US. [id number] gestation of tel:+[phone] Associates Jay Low weight gain Lloyd-1 Sobbing Referring In Womens in , 6 [place]. Provider: Raffi FAIRCHILD, third 8 700 [address] Fisher PO Box trimesterEncntr Medical , 700 1522, for suprvsn of [facility], normal [address], [place] [address] SALAS, preg, third [address], [id number], [email or web address] weeks 120, [place], [place] gestation of MARITZA Thompson, tel:+ MARITZA, [phone]. [address], tel:+316 US. 7277318 tel: [phone] Associates Jay Abnormal Lloyd-0 Sobbing Referring In Womens ultrasonic 9 [place]. Provider: Raffi FAIRCHILD, finding on 8 700 Kiah Fisher PO Box Medical , 700 1522, screening of [facility], motherEncntr for Drive, [place] [address] SALAS, suprvsn of normal [address], [id number], first preg, third 120, [place], [place] [email or web address] weeks Jay MARITZA, tel:+ gestation of MARITZA, [id number]. [address], tel:+ US. 7319904 tel: [phone] Associates Jay Encntr for Lloyd-0 Sobbing Referring In Womens suprvsn of normal [place]. Provider: Raffi FAIRCHILD, first preg, third 8 700 Kiah Fisher PO Box [facility], 700 1522, r For [facility], Screening For Drive, Center Dr SALAS, Streptococcus B36 [address], [id number], weeks gestation 120, [place], [place] of MARITZA Thompson, tel:+ MARITZA, [id number]. [address], tel:+ US. 7935383 tel: [phone] Associates Jay Low weight gain Lloyd-0 Sobbing Referring In Womens Ultrasound in , 2 [place]. Provider: Health DEVORAH, third 8 700 Kiah Fisher PO Box [facility] , 700 1522, ultrasonic [facility], finding on [facility], [place] [address], [address], [id number], screening of 120, [place], [place] [email or web address] weeks MARITZA Thompson, tel:+ gestation of MARITZA, [id number]. [address], tel:+316 US. 9654657 tel: [phone] Associates Jay Low weight gain Cj-1 Sobbing Referring In Womens in , 8201 [place]. Provider: Raffi FAIRCHILD, third 8 700 Kiah Fisher PO Box trimesterAbnormal Medical , 700 1522, ultrasonic [facility], finding on Drive, [place] [address], [address], [id number], screening of 120, [place], [place] motherEncntr for MARITZA Thompson, tel:+ suprvsn of normal MARIZTA, [id number]. first preg, third [address], tel:+316 [id number] weeks US. 1175880 gestation of tel:+05-06 [phone] Associates Jay Abnormal Cj-0 Sobbing Referring In Womens ultrasonic 4201 [place]. Provider: Raffi FAIRCHILD, finding on 8 700 K[address] Fisher PO Box Medical , 700 1522, screening of [facility], motherEncntr for [facility] Dr SALAS, suprvsn of normal [address], [id number], first preg, third 120, [place], [place] [id number] weeks MARITZA Thompson, tel:+ gestation of MARITZA, [id number]. [address], tel:+-316 US. 8910847 tel: [phone] Associates Jay Encntr for May-2 Sobbing Referring In Womens suprvsn of normal 201 [place]. Provider: Raffi FAIRCHILD, first preg, third 8 700 Kiah Fisher PO Box [id number] weeks Medical , 700 1522, gestation of [facility], [facility], [place] [address], [address], [id number], 120, [place], [place] JayMARITZA, tel:+ MARITZA, [id number]. [address], tel:+-316 US. 5482169 tel: [phone] Associates Jay Abnormal May-2 Sobbing Referring In Womens Ultrasound ultrasonic 1-201 [place]. Provider: Raffi FAIRCHILD, finding on 8 700 Kiah Fisher PO Box Medical , 700 1522, screening of [facility], [id number] weeks [facility] Dr SALAS, gestation of [address], [id number], 120, [place], [place] MARITZA Thompson, tel:+ MARITZA, [id number]. 114, tel:+ US. 9952087 tel: [phone] Kelley [place] Encntr for Apr-2 Sobbing Referring In Womens suprvsn of normal 3-201 [place]. Provider: Raffi FAIRCHILD, first preg, 8 700 Kiah Fisher PO Box second Medical K, 700 1522, [email or web address] weeks [facility] of [facility] Dr SALAS, [address], [id number], 120, [place], [place] MARITZA Thompson, tel:+ MARITZA, [id number]. 114, tel:+ US. 4071577 tel: [phone] Kelley [place] Encntr for Mar-2 Sobbing Referring In Womens suprvsn of normal 6-201 [place]. Provider: Raffi FAIRCHILD, first preg, 8 700 Kiah Fisher PO Box second Medical K, 700 1522, [email or web address] weeks [facility], gestation of [facility] Dr SALAS, [address], [id number], 120, [place], [place] MARITZA Thompson, tel:+ MARITZA, [id number]. 114, tel:+ US. 4104873 tel: [phone] Kelley [place] Encntr for Mar-2 Sobbing Referring In Womens Ultrasound suprvsn of normal 6-201 [place]. Provider: Raffi FAIRCHILD, first preg, 8 700 Kiah Fisher PO Box second Medical K, 700 1522, [email or web address] weeks [facility], gestation of [facility] Dr SALAS, [address], [id number], 120, [place], [place] MARITZA Thompson, tel:+ MARITZA, [id number]. 114, tel:+ US. 7104869 tel: [phone] Kelley [place] Encntr for Mar-1 Sobbing Referring In Womens suprvsn of normal 2-201 [place]. Provider: Raffi FAIRCHILD, first preg, 8 700 Kiah Fisher PO Box second Medical K, 700 1522, [email or web address] weeks [facility], gestation of [facility] Dr [address], [address], [id number], 120, [place], MARITZA Thompson, tel: [place], [id number]. [address], tel: US. 9637147 tel: [phone] Associates Jay Encntr screen for May- Sobbing Referring In Womens infections w sexl 2-201 [place]. Provider: Health DEVORAH, mode of 8 700 Kiah Fisher PO Box [facility] K, 700 1522, r for screening [facility], for oth [facility] Dr SALAS, infec/parastc [address], [id number], diseasesEncntr 120, [place], for suprvsn of MARITZA Thompson, tel: normal first MARITZA, [id number]. preg, second [address], tel: trimesterEncounte US. [id number] r For Other tel: Specified [id number] weeks gestation of Associates Jay Feb- Fisher In Womens 4-200 Kiah. Health DEVORAH, 9 700 [address] Medical [address], [place], [place], 120, [id number], [place], MARITZA, tel:[phone] , [place]. tel: [phone] Family History Family Member Diagnosis Age At [...] name Insurance type Covered republican ID Authorization(s) [facility] [place] [id number] [facility] [id number] [facility] [place] [id number] Social History Type Description Quantity Date Captured Alcohol Use Details No Caffeine Use Details Unknown Tobacco Use Status Unknown Smoking Status Never smoker Vital Signs Date / Height Weight BMI Pulse Blood Temperature Respiratory Body Head BMI Time: Rate Pressure Rate Surface Circumference percentile Area 160.20 26.6 / lbs 6 mm[Hg] 8:49 kg/m AM eter (2) Chief Complaint And Reason For Visit Unknown Chief Complaint And Reason For Visit Reason For Referral Reason For Referral Unknown Plan Of Care Date Type Action Status Appointment Alpa Christopher BOOKED Appointment 7pm Alpa Andre @ [facility] BOOKED Future Order: Radiology Order Ultrasound OB Follow-up ([id number]) Ordered Future Order: Radiology Order Ultrasound OB Follow-up ([id number]) Ordered Future Order: Radiology Order Complete OB Ultrasound > 14 Weeks Ordered ([id number]) Date Type Problem Goal Intervention Status Start [...]
--- OUTSIDE RECORDS SUMMARY | 2017-11-05 16:24 | External Medical Summary | Continuity of Care Document ---
:1990 Author Organization [facility] Address [address] [place], [place] [id number] Phone Support Name Relationship Address Phone Naman GALINDO parent [phone] [place] [address] Allergies, Adverse Reactions, Alerts Substance Reaction Severity [...] third trimester 32 weeks gestation of - Encntr screen for [...] Visit [facility] Jay Low weight gain Cj- Sobbing Referring In Womens in , [place]. Provider: Raffi FAIRCHILD, third 8 700 [address] Fisher [address] trimesterAbnormal Medical , [address] [address], ultrasonic [facility], finding on [facility] [address], [address], , screening of 120, [place], [place] motherEncntr for MARITZA [place], tel:+ suprvsn of normal [place], [id number]. first preg, third [address], tel:+ [id number] weeks [place]. [id number] gestation of tel:[phone] Associates Jay Abnormal Cj-0 Sobbing Referring In Womens ultrasonic [place]. Provider: Raffi FAIRCHILD, finding on 8 700 Kiah Fisher [address] Medical , 700 [address]22, screening of [facility], motherEncntr for [facility] [address], suprvsn of normal [address], , first preg, third 120, [place], [place] [id number] weeks MARITZA [place], tel:+ gestation of MARITZA, [id number]. [address], tel:+ [place]. [phone] tel: [phone] Associates Jay Ingram for August- Sobbing Referring In Womens suprvsn of normal [place]. Provider: Raffi FAIRCHILD, first preg, third 8 700 Kiah Fisher [address] [id number] weeks Medical , 700 1522, gestation of [facility], [facility], [place] [address], [address], , 120, [place], [place] MARITZA [place], tel:+ MARITZA, [phone]. 114, tel:+ US. [phone] tel: [phone] Kelley [place] Abnormal May-2 Sobbing Referring In Womens Ultrasound ultrasonic [place]. Provider: Raffi FAIRCHILD, finding on 8 700 K[address] Fisher [address] Medical K, 700 1522, screening of [facility], [id number] weeks [facility] [address], gestation of [address], , 120, [place], [place] MARITZA [place], tel:+ MARITZA, [phone]. 114, tel:+ US. [phone] tel: [phone] Kelley [place] Encntr for Apr-2 Sobbing Referring In Womens suprvsn of normal [place]. Provider: Raffi FAIRCHILD, first preg, 8 700 Kiah Fisher [address] Box [facility] , 700 1522, [id number] weeks [facility], [facility] [address], [address], , 120, [place], [place] MARITZA [place], tel:+ MARITZA, [phone]. 114, tel:+ [place]. [phone] tel: [phone] Kelley [place] Encntr for Mar-2 Sobbing Referring In Womens suprvsn of normal [place]. Provider: Raffi FAIRCHILD, first preg, 8 700 Kiah Fisher [address] second Medical , 700 1522, [id number] weeks [facility], [facility] [address], [address], , 120, [place], [place] MARITZA [place], tel:+ MARITZA, [phone]. 114, tel:+ US. [phone] tel: [phone] Kelley [place] Encntr for Mar-2 Sobbing Referring In Womens Ultrasound suprvsn of normal [place]. Provider: Raffi FAIRCHILD, first preg, 8 700 Kiah Fisher [address] second Medical , 700 1522, [id number] weeks [facility] [address], [address], , 120, [place], [place] MARITZA [place], tel: [place], [phone]. [address], tel: [place]. [phone] tel: [phone] Kelley [place] Encntr for Jun- Sobbing Referring In Womens suprvsn of normal 2-201 Shemar. Provider: Raffi FAIRCHILD, first preg, 8 700 [address]iah Fisher [address] second Medical K, 700 1522, [id number] weeks [facility], gestation of [facility] [address], [address], [id number], 120, [place], [place], tel: [place], [phone]. [address], tel: [place]. [phone] tel: [phone] Kelley [place] Encntr screen for May- Sobbing Referring In Womens infections w sexl 2-201 Shemar. Provider: Raffi FAIRCHILD, mode of 8 700 [address] Fisher [address] Box transmissEncounte Medical , 700 1522, r for screening [facility], for oth [facility] [address], infec/parastc [address], [id number], diseasesEncntr 120, [place], for suprvsn of [place], [place], tel: normal first MARITZA, [id number]. preg, second [address], tel: trimesterEncounte US. [phone] r For Other tel: Specified [phone] [id number] weeks gestation of Kelley [place] Nov- Fisher In Womens 4-200 Kiah. Raffi FAIRCHILD, 9 700 [address], [place] [address], [address] MARITZA, 120, [id number], [place], MARITZA, tel: [phone] , . tel: [phone] Family History Family Member Diagnosis Age At [...] Record Payers Payer name Insurance type Covered alliance party ID Authorization(s) [facility] [id number] [facility] [id number] [facility] [id number] Social History Type Description Quantity Date Captured Alcohol Use Details No Caffeine Use Details Unknown Tobacco Use Status Unknown Smoking Status Never smoker Vital Signs Date / Height Weight BMI Pulse Blood Temperature Respiratory Body Head BMI Time: Rate Pressure Rate Surface Circumference percentile Area 6 8:35 kg/m AM eter (2) 159.70 26.5 122/78 -2018 lbs 7 mm[Hg] 8:39 kg/m AM eter (2) Chief Complaint And Reason For Visit Unknown Chief Complaint And Reason For Visit Reason For Referral Reason For Referral Unknown Plan Of Care Date Type Action Status Appointment Alpa Christopher BOOKED Appointment Alpa Christopher BOOKED Future Order: Radiology Order Ultrasound OB Follow-up ([id number]) Ordered Future Order: Radiology Order Complete OB Ultrasound > 14 Weeks Ordered ([id number]) Date Type Problem Goal Intervention Status Start [...]
--- OUTSIDE RECORDS SUMMARY | 2017-11-05 16:25 | External Medical Summary ---
:1990 Author Organization [facility] Address [address] [place] [address] Care Team Providers Name Role Phone Eryn, Partha Unavailable Unavailable PROBLEMS Unknown Problems ALLERGIES Unknown Allergies SOCIAL HISTORY No smoking Hx information available PLAN OF CARE VITAL SIGNS MEDICATIONS Unknown Medications RESULTS No Results PROCEDURES No Known procedures IMMUNIZATIONS No Known Immunizations
[2017-11-05] MEDS ORDERED: ZOLPIDEM 5 MG TABLET PO PRN (16:26)
[2017-11-05] MEDS ORDERED: SALINE FLUSH 10ml SYRINGE IV PRN ×2 (16:26→16:41)
[2017-11-05] MEDS ORDERED: METHYLERGONOVINE 0.2 MG/ML INJECTION IM PRN (16:41)
[2017-11-05] MEDS ORDERED: CALCIUM CARBONATE Chewable 500mg TABLET PO PRN (16:41)
[2017-11-05] MEDS ORDERED: LIDOCAINE 1% (10mg/ml) 2mL INJ PF SDV ID PRN (16:41)
[2017-11-05] MEDS ORDERED: CARBOPROST 250 MCG/ML INJECTION IM PRN (16:41)
[2017-11-05] MEDS ORDERED: ACETAMINOPHEN 500 MG TABLET PO PRN (16:41)
[2017-11-05] MEDS ORDERED: MAG-AL + SIM ORAL LIQUID 30ml PO PRN (16:41)
[2017-11-05 17:43] VITALS: BMI 27.3
[2017-11-05] MEDS: HYDROCODONE/APAP 5mg/325mg TABLET PO PRN (19:12)
[2017-11-06] MEDS: LR 1,000 ML IV PRN ×4 (04:44→20:40)
[2017-11-06] MEDS ORDERED: OXYTOCIN DRIP 30 UNIT/500 ML ML IV PRN (05:00)
[2017-11-06] MEDS: D5LR 1,000 ML IV PRN ×2 (05:01→13:57)
[2017-11-06] MEDS ORDERED: NALOXONE 0.4 MG/ML INJECTION IVP PRN (09:29)
[2017-11-06] MEDS ORDERED: DiphenhydrAMINE 50 MG/ML INJECTION IVP PRN (09:29)
[2017-11-06] MEDS ORDERED: ROPIVACAINE 1% 10MG/ML INJ 200 MG, SUFentanil 50 MCG in NS 100 ML EPI PRN (09:29)
[2017-11-06] MEDS ORDERED: ONDANSETRON 4 MG/2 ML INJECTION IVP PRN (09:29)
--- NOTE | 2017-11-06 09:29 | Anesthesia Preoperative Report ---
Anesthesia Epidural/Spinal Rec - Date and Time Date: 11/06/17 Procedure: Labor Epidural Plan: Epidural - Vital Signs Vital Signs: Temperature 98.2 F 11/05/17 17:44 Pulse Rate 94 11/05/17 17:44 Respiratory Rate 18 11/05/17 17:44 Blood Pressure 118/74 11/05/17 17:44 Pulse Oximetry 98 11/05/17 17:44 /Para: P:0 - Medictaions & Allergies Inpatient Medications: Current Medications Acetaminophen (Tylenol) 500 - 1,000 mg PO Q4H PRN PRN Reason: Pain Hydrocodone Bitart/Acetaminophen ([place] 5/325) 1 - 2 tab PO Q4H PRN PRN Reason: Pain Last Admin: 11/05/17 19:12 Dose: 2 tab Al Hydroxide/Mg Hydroxide (Maalox Plus) 30 ml PO Q3H PRN PRN Reason: Indigestion Calcium Carbonate (Tums) 500 - 1,000 mg PO Q2H PRN PRN Reason: Indigestion Carboprost Tromethamine (Hemabate) 250 mcg IM O PRN PRN Reason: .Downtime Lactated Ringer's (Lactated Ringers) 1,000 mls @ 999 mls/hr IV .Q1H1M PRN Last Admin: 11/06/17 04:44 Dose: 999 mls/hr Dextrose/Lactated Ringer's (Dextrose 5%-Lactated Ringers) 1,000 mls @ 125 mls/ hr IV .Q8H PRN PRN Reason: Labor Last Admin: 11/06/17 05:01 Dose: 125 mls/hr Oxytocin (Pitocin Drip) 30 unit in 500 mls @ 2 mls/hr IV .Q24H PRN; Protocol PRN Reason: Induction/Augmentation Last Admin: 11/06/17 04:59 Dose: 2 mls/hr Lidocaine HCl (Xylocaine-Mpf 1% Vial) 0.2 mg ID O PRN PRN Reason: IV Start Methylergonovine Maleate (Methergine) 0.2 mg IM O PRN Misoprostol (Cytotec) 800 mcg WI ONCE PRN Sodium Chloride (Iv Flush) 10 - 80 ml IV PRN PRN PRN Reason: Flushing Sodium Chloride (Iv Flush) 10 - 80 ml IV PRN PRN PRN Reason: Flushing Zolpidem Tartrate (Ambien) 5 mg PO O PRN PRN Reason: Insomnia Allergies/Adverse Reactions: Allergies Allergy/AdvReac Type Severity Reaction Status Date / Time No Known Allergies Allergy Verified 11/05/17 17:52 - Home Medications Home Medications: Home Medications Medication Instructions Recorded Confirmed Type Pnv No.95/Ferrous Fum/Folic AC 1 each PO DAILY 10/15/17 10/15/17 History [ Tablet] - Medical History Respiratory: DENIES: Asthma, Bronchitis, Chronic Obstructive Pulmonary Disease (COPD), Dyspnea, Orthopnea, Pulmonary Embolism, Pneumonia, Upper Respiratory Infection, Pulmonary Edema, Sleep Apnea, Tuberculosis, Other Cardiovascular: DENIES: Abnormal EKG, Angina, Arrhythmia, Congestive Heart Failure, Coronary Artery Disease, Heart Murmur, Hypertension, Hypotension, High Cholesterol, Myocardial Infarction, Rheumatic Fever, Valvular Heart Disease, Other Gastrointestional: DENIES: Obstructive Bowel, Hepatitis, Cirrhosis, Nausea or Vomiting Present, Gastroesophageal Reflux Disease, Gastrointestinal Bleeding, Hiatal Hernia, Ulcer , Morbid Obesity, Other Neuro/Musculoskeletal: Denies: Back Problems, Cerebrovascular Accident, Depression, Headaches, Loss of Consciousness, Muscle Weakness, Neuromuscular Disorder, Paralysis, Paresthesia, Syncope, Seizures, Other Renal/Endocrine: DENIES: Diabetes Mellitus Type 1, Diabetes Mellitus Type 2, Renal Failure, Dialysis, Thyroid Disease, Weight Loss, Weight Gain, Other Other History: Reports: Now DENIES: Anesthesia Reactions - Surgical History Reproductive Surgery/Treatment: DENIES: Section Anesthesia Reactions: None Hx Family Anesthesia Reaction: No History of Motion Sickness: No - Social History Smoking Status: Never smoker - Pertinent Findings Lab Data: CBC and BMP 11/05/17 16:49 - Airway Assessment Mallampati Score: II (small mouth opening) TMD: 3 Fingerbreadths Neck Extension: good Overall Assessment: no airway concerns - ASA ASA Score: 2 - Discussion Discussion: Discussed risks/options/alternatives of anesthesia and questions answered. Patient consents. Nursing pain assessment noted. Anesthesia Discussion: spouse Attestation Statement: Prior to the delivery of any anesthetic medication, I examined the patient, developed the plan, obtained the patient's consent and discussed the risk and benefits of the procedure with the patient/guardian.
--- NOTE | 2017-11-06 12:39 | OB/GYN Progress Note ---
- Pain Control Pain control: Epidural - Pelvic Exam Dilation (cm): 5 Effacement (%): 90 station: -2 Amniotic membrane status: Ruptured - Contractions Monitor mode: Internal Contraction frequency: 2 Contraction pattern: Irregular Contraction intensity: Moderate - Status status: Category l - Assessment and Plan Assessment: induction ongoing Plan: continuous present management
--- NOTE | 2017-11-06 15:44 | OB/GYN Progress Note ---
- Pain Control Pain control: Epidural - Pelvic Exam Dilation (cm): 8 Effacement (%): 100 station: 0 Amniotic membrane status: Ruptured - Contractions Monitor mode: Internal Contraction frequency: 2 Contraction pattern: Regular Contraction intensity: Moderate - Status status: Category l - Assessment and Plan Assessment: induction ongoing Comments: Maternal temp of 99.8 earlier feels warm, foul smell to amniotic fluid will start Unasyn. Go up on Pitocin. LOP.
[2017-11-06] MEDS: AMPICILLIN/SULBACTAM 3 G in NS 100 ML IV SCH ×2 (16:07→23:40)
[2017-11-06] MEDS ORDERED: CITRIC ACID/SODIUM CITRATE 30ml PO ONE (20:06)
[2017-11-06] MEDS ORDERED: FAMOTIDINE PB 20 MG/50 ML BAG IV ONE (20:06)
[2017-11-06] MEDS ORDERED: TRANEXAMIC ACID 1,000 MG/10 ML VIAL IV ONE (20:08)
[2017-11-06] MEDS ORDERED: CEFAZOLIN PREMIX (MC ONLY) 2 GM/50 ML BAG IV ONE (20:10)
--- NOTE | 2017-11-06 20:12 | OB/GYN Progress Note ---
- Pain Control Pain control: Epidural - Pelvic Exam Dilation (cm): 8 Effacement (%): 100 station: 0 Amniotic membrane status: Ruptured - Contractions Monitor mode: Internal Contraction frequency: 2 Contraction pattern: Regular Contraction intensity: Moderate - Status status: Category ll - Assessment and Plan Assessment: induction ongoing Plan: Comments: Chorio has been on Unasyn Pitocin since 5 am poor contraction pattern, IUPC MVU anywhere from 190to 230 No cervical change x 4 hourswith adequate MVUs Proceed with PLTCS Discussed R/B/A including Infection, Injury to bowel, bladder , baby. Bleeding with need for transfusion and . Questions elicted and answered. Will give TXA, and Clinda
[2017-11-06] MEDS: CLINDAMYCIN PB 600 MG/50 ML BAG IV ONE (20:31)
[2017-11-06] MEDS: OXYTOCIN BOLUS BAG 30 UNIT/500 ML ML IV SCH ×2 (20:40→21:10)
[2017-11-06] MEDS ORDERED: METHYLERGONOVINE 0.2 MG/ML INJECTION IM ONE (20:52)
[2017-11-06] MEDS ORDERED: TRANEXAMIC ACID 1,000 MG in NS 100 ML IV ONE (20:53)
[2017-11-06] MEDS ORDERED: MORPHINE SULFATE PF 5mg/10ml INJ (Duramorph) ONE (21:17)
[2017-11-06] MEDS ORDERED: ONDANSETRON 4 MG/2 ML INJECTION ONE (21:18)
[2017-11-06] MEDS ORDERED: HYDROCORTISONE 2.5% CREAM 30gm RECTALLY PRN (21:26)
[2017-11-06] MEDS ORDERED: ONDANSETRON ODT 4 MG TABLET PO PRN (21:26)
[2017-11-06] MEDS ORDERED: SIMETHICONE 80 MG CHEWABLE TABLET PO PRN (21:26)
[2017-11-06] MEDS ORDERED: DiphenhydrAMINE 25 MG CAPSULE PO PRN (21:26)
[2017-11-06] MEDS ORDERED: CALCIUM CARBONATE Chewable 500mg TABLET PO PRN (21:26)
[2017-11-06] MEDS ORDERED: ACETAMINOPHEN 500 MG TABLET PO PRN (21:26)
[2017-11-06] MEDS ORDERED: OXYTOCIN DRIP 30 UNIT/500 ML ML IV SCH (21:30)
--- NOTE | 2017-11-06 21:34 | Operative Note ---
Operative Note - Date of Operation Date of Operation: 11/06/17 - General : 1 Expected Date of Delivery: 11/01/17 - Preoperative Diagnosis Arrested dilation, Chorioamnionitis Preoperative Diagnosis: Failed IOL - Postoperative Diagnosis arrested dilation, Chorioamnionitis Postoperative Diagnosis: Failed IOL - Procedure Primary - Surgeon Surgeon: Shemar Dodge DO - Relief Mate OB Relief Mate: Kiah Fisher MD - Anesthesia Anesthesia Provider: Kieran Padilla CRNA - Findings Findings: viable male - APGARS : 6/9 - [place] Weight Weight (grams): 3858 - Indications Indications: Failed IOL, Failure to progress - Description of Procedure Description of Procedure: See Dictation
[2017-11-06] MEDS: D5LR 1,000 ML IV SCH (21:45)
[2017-11-06] MEDS: Oxycodone/Acetaminophen 5/325 1 TAB PO PRN (23:18)
[2017-11-07] MEDS: IBUPROFEN 800 MG TABLET PO PRN ×3 (00:08→15:45)
[2017-11-07] MEDS: CLINDAMYCIN PB 600 MG/50 ML BAG IV ONE (02:45)
[2017-11-07] MEDS: AMPICILLIN/SULBACTAM 3 G in NS 100 ML IV SCH ×3 (05:36→17:57)
[2017-11-07] MEDS: HYDROCODONE/APAP 5mg/325mg TABLET PO PRN (08:01)
[2017-11-07] MEDS: D5LR 1,000 ML IV SCH ×3 (08:07→18:17)
[2017-11-07] MEDS: SIMETHICONE 80 MG CHEWABLE TABLET PO SCH ×3 (09:00→20:31)
[2017-11-07] MEDS: DOCUSATE CALCIUM 240 MG CAPSULE PO SCH (09:19)
--- NOTE | 2017-11-07 10:04 | OB/GYN Progress Note ---
OB-PP Progress Note - General PPD1 Maternal Group B Strep: Negative Maternal Rh: positive Maternal Rubella Status: Immune - Subjective Date: 11/07/17 Lochia: Minimal Pain: controlled Voiding: voiding - Objective Vital Signs: Last Vital Signs Temp 99.5 F 11/07/17 08:00 Pulse 74 11/07/17 08:00 Resp 18 11/07/17 08:00 BP 142/90 H 11/07/17 08:00 Pulse Ox 96 11/07/17 08:00 General: alert and oriented Abdomen: fundus firm, non-tender Incision: clean, no erythema, dry Extremities: non-tender Laboratory: Laboratory Results - last 24 hr 11/06/17 11/06/17 11/07/17 21:11 21:14 07:55 WBC 22.7 H D RBC 4.21 Hgb 11.2 L Hct 34.6 L MCV 82.2 MCH 26.6 MCHC 32.4 RDW Std Deviation 49.4 Plt Count 271 MPV 10.8 Cord ABG pH 7.280 Cord ABG pCO2 51.5 Cord ABG pO2 11.6 Cord ABG HCO3 24.2 Cord ABG Total CO2 25.8 Cord ABG Base Excess -3.3 Cord ABG O2 Sat 10.0 Cord VBG pH 7.383 Cord VBG pCO2 34.2 Cord VBG pO2 26.9 Cord VBG HCO3 20.3 Cord VBG Total CO2 21.4 Cord VBG Base Excess -3.9 Cord VBG O2 Sat 49.7 - Assessment Assessment: Primary C/S, Chorioamnionitis (Resolving. DC Abx this PM.) - Plan Plan: routine care
[2017-11-07] MEDS: Oxycodone/Acetaminophen 5/325 1 TAB PO PRN ×3 (12:27→20:30)
--- NOTE | 2017-11-07 13:15 | Operative Note ---
DATE OF PROCEDURE 11/06/2017 PREOPERATIVE DIAGNOSES 1. Failed induction of labor. 2. Arrested dilatation. 3. Chorioamnionitis. POSTOPERATIVE DIAGNOSES 1. Failed induction of labor. 2. Arrested dilatation. 3. Chorioamnionitis. 4. Delivered. PROCEDURE Primary low transverse section. SURGEON Shemar Dodge DO FILTRATION SUPERVISOR Kiah Fisher MD ANESTHESIA PROVIDER Spinal epidural by Kieran Padilla CRNA FINDINGS Viable male . Apgars 6/9. [place] weight 3858 g. EBL 1000 mL. INDICATIONS FOR PROCEDURE This is a G1, P0 who presented to Maternal/Child for a postdates induction at approximately 40 weeks 5 days. She underwent Vega bulb cervical ripening. On the morning of induction she was noted to be 3-4 cm and 60% effaced. Pitocin was started at 5 a.m. and at 9 a.m. she had artificial rupture of membranes. IUPC was placed at this time. She did have epidural anesthesia during labor. During her induction she got to a max of 26 units of Pitocin. She had a dysfunctional uterine pattern and MVUs were noted to be anywhere from 108 to 230 consistently. Multiple times the Pitocin was cut and then restarted, going up to try to improve the pattern. She got to 8 cm, 100% effaced and 0 station but never progressed from there after five hours of being 8 cm, 100%, 0 station. She was noted to have a maternal temperature at one time and foul- smelling discharge and was started on Unasyn and Tylenol. The diagnosis of chorioamnionitis was made. Risks, benefits and alternatives to the procedure were discussed with the patient. Indications for the procedure were discussed. Questions were elicited and answered. PROCEDURE The patient was taken to the operating room where spinal epidural anesthesia was noted to be adequate. She was then prepped and draped in the dorsal supine position with a leftward tilt. A Pfannenstiel skin incision was made with a scalpel and carried through the underlying layers to the fascia. The fascia was then incised in the midline. The fascial incision was then extended laterally with the Marie scissors. At this time the superior aspect of the fascial incision was grasped with a Carmelo clamp, elevated and the rectus muscle dissected off sharply and bluntly. Attention was turned to the inferior aspect of the fascial incision which was elevated and the rectus muscle dissected off bluntly. The rectus muscles were in the midline and the peritoneum was entered bluntly. The peritoneal incision was then extended superiorly and inferiorly with good visualization of the bladder. The bladder blade was then inserted and the vesicouterine peritoneum was identified, grasped with the pickups and entered sharply. This incision was then extended laterally with Metzenbaum scissors and the bladder flap was created digitally. At this time the bladder flap was reinserted and the uterine incision was made in a transverse fashion. The uterine incision was then extended laterally with cephalad-caudad motion. The infant was then delivered head first atraumatically. Cord was clamped and cut and the was handed to the varnisher apprentice who was waiting. The placenta was then removed. The uterus was exteriorized and cleared of all clot and debris. The uterine incision was repaired with 0-Monocryl in a running locked fashion. A second layer of the same suture was used in an imbricating fashion to obtain excellent hemostasis. The bladder flap was then repaired with 3-0 Vicryl. The posterior cul-de-sac was cleared of all clot and debris and the uterus was returned to the abdomen. Bilateral paracolic gutters were cleared of clot and debris. Excellent hemostasis was noted and the peritoneum was closed with 3-0 Monocryl in a running fashion. At this time the rectus muscles were reapproximated in the midline with 3-0 Monocryl loosely. The fascial incision was repaired with 0- Vicryl in a running fashion. Subcutaneous layer was closed with 2-0 plain gut and the skin was closed with 4-0 Monocryl and Prineo Dermabond. The patient tolerated the procedure well. Sponge, lap and needle counts were correct x 2. The patient was taken to recovery room in stable condition. [facility]
[2017-11-07 13:24] VITALS: RESP 16
[2017-11-08] MEDS: SIMETHICONE 80 MG CHEWABLE TABLET PO SCH ×4 (00:04→19:30)
[2017-11-08] MEDS: AMPICILLIN/SULBACTAM 3 G in NS 100 ML IV SCH ×2 (00:04→05:58)
[2017-11-08] MEDS: Oxycodone/Acetaminophen 5/325 1 TAB PO PRN ×4 (03:47→19:30)
[2017-11-08] MEDS: LR 1,000 ML IV PRN (06:01)
[2017-11-08] MEDS: IBUPROFEN 800 MG TABLET PO PRN ×2 (08:21→19:30)
[2017-11-08] MEDS: DOCUSATE CALCIUM 240 MG CAPSULE PO SCH (08:23)
--- NOTE | 2017-11-08 09:29 | OB/GYN Progress Note ---
OB-PP Progress Note - General PPD2 Maternal Group B Strep: Negative Maternal Rh: positive Maternal Rubella Status: Immune - Subjective Date: 11/08/17 Lochia: Minimal Pain: controlled Voiding: voiding Subjective Comments: Doing well. They would like to go home this evening, but baby's blood culture won't be back until late. - Objective Vital Signs: Last Vital Signs Temp 98.0 F 11/08/17 04:20 Pulse 76 11/08/17 00:00 Resp 16 11/08/17 00:00 BP 129/75 11/08/17 00:00 Pulse Ox 97 11/08/17 00:00 General: alert and oriented Abdomen: fundus firm, non-tender Incision: clean, no erythema, dry Extremities: non-tender - Assessment Assessment: Primary C/S, Chorioamnionitis (Resolving) - Plan Plan: routine care, discharge home, continue PNV
[2017-11-08 18:03] VITALS: BP 129/80; PULSE 78; TEMP 98.2; O2SAT 97
--- NOTE | 2017-11-10 18:22 | Anesthesia Postoperative Note ---
- Date and Time Date: 11/10/17 Time: 18:22 - Status Patient Participated in Evaluation: Patient Participated by Phone Vital Signs: Temperature 98.2 F 11/08/17 17:00 Pulse Rate 78 11/08/17 17:00 Respiratory Rate 16 11/08/17 17:00 Blood Pressure 129/80 11/08/17 17:00 Pulse Oximetry 97 11/08/17 17:00 Respiratory Function: Airway Patent Mental Status: Alert and Oriented Pain Intensity: 0 Hydration: Taking PO Fluids Nausea/Vomiting: None Complications During Recover: None Apparent - Follow-Up Instructions Instructions: Per Surgeon
== END 2017-11-08 22:30 | disposition home or self-care (01) | DRG 765 ==
LOC: MC 16:17
PROVIDERS: ADMIT Obstetrics & Gynecology; ATTEND Obstetrics & Gynecology